=== PATIENT | female | born 1960 | race Caucasian/White ===

== ENCOUNTER 2019-10-28 15:17 | Outpatient (CLI) | payer OTHER, SELFPAY ==
--- NOTE | 2019-10-28 15:15 | XR_ITS ---
WS: [id number] DEXA (DUAL ENERGY X-RAY ABSORPTIOMETRY) Bone mineral density was performed using a [employer] machine. HISTORY: postmenopausal COMPARISON: None available. Total hip BMD: Left: 1.019 g/cm2. T score: 0.1 Z score: 0.8 Right: 1.075 g/cm2. T score: 0.5 Z score: 1.3 10 year probability of a major osteoporotic fracture is 14%. XR/XR DEXA axial skeleton* [id number] IMPRESSION: NORMAL BONE MINERAL DENSITY based upon the WHO classification for females.
== END 2019-10-28 15:18 | disposition home or self-care (01) ==
LOC: RADWPI 15:23
PROVIDERS: Family Provider Family Medicine; PCP Family Medicine; Visit Provider Nurse Practitioner Women's Health
DX: Z13.820 Encounter for screening for osteoporosis (principal); Z78.0 Asymptomatic menopausal state
CPT/HCPCS: 77080